=== PATIENT | female | born 1945 | race American Indian/Alaskan Native ===

== ENCOUNTER 2021-04-02 13:07 | Outpatient (RCR) | payer OTHER, SELFPAY ==
[2021-04-02 14:12] VITALS: BMI 53.0
== END 2021-05-26 13:44 | disposition home or self-care (01) ==
LOC: ANHWOC 13:07
PROVIDERS: PCP Family Medicine; Visit Provider Physician Assistant
DX: S01.80XD Unspecified open wound of other part of head, subsequent encounter (principal)
CPT/HCPCS: 99212; G0463

== ENCOUNTER 2021-06-29 15:30 | Outpatient (CLI) | payer OTHER, SELFPAY ==
[2021-06-29 16:46] LABS: Anion Gap 6 mmol/L (8-16); Blood Urea Nitrogen 27 mg/dL (7-17); Calcium 9.8 mg/dL (8.4-10.2); Carbon Dioxide 34 mmol/L (22-30); Chloride 97 mmol/L (98-107); Estimated Glomerular Filt Rate 29; Glucose 136 mg/dL (65-110); Potassium 3.9 mmol/L (3.4-5.0); Sodium 137 mmol/L (137-145)
[2021-06-29 16:57] LABS: LDL Cholesterol Direct 45 mg/dL
== END 2021-06-29 15:31 | disposition home or self-care (01) ==
LOC: ANHWCLAB 15:33
PROVIDERS: PCP Family Medicine; Referring Provider Internal Medicine Endocrinology, Diabetes & Metabolism; Visit Provider Internal Medicine Endocrinology, Diabetes & Metabolism
DX: E11.65 Type 2 diabetes mellitus with hyperglycemia (principal); E78.00 Pure hypercholesterolemia, unspecified; Z79.4 Long term (current) use of insulin
CPT/HCPCS: 36415; 80048; 83721

== ENCOUNTER 2021-07-08 15:43 | Outpatient (NON) | payer OTHER, SELFPAY ==
[2021-07-08 16:02] LABS: Add Urine Microscopic? YES; Appearance Urine Clear (Clear); Bacteria Urine Trace /hpf; Bilirubin Urine Negative (Negative); Blood Urine 2+ (Negative); Color Urine Yellow (Yellow); Glucose Urine UA Negative (Negative); Ketones Urine Negative (Negative); Leukocyte Esterase Ur Negative LEU/UL (NEGATIVE); Mucus Urine Rare /lpf; Nitrate Urine Negative (Negative); Protein Urine 1+ mg/dL (Negative); RBC Urine 0-2 /hpf (0-2); Specific Grav Ur 1.019 (1.001-1.035); Squamous Epithelial Cell Urine Moderate /hpf (Few); Urobilinogen Urine Negative mg/dL (<2.0); WBC Urine 0-3 /hpf (0-3)
[2021-07-08 20:23] LABS: Creatinine Urine 118.4 mg/dL
[2021-07-08 20:28] LABS: MALB Creatinine Ratio 56.9 mg/g (0-30); Microalbumin Urine Random 67.4 mg/L (0-16.7)
== END 2021-07-08 15:44 | disposition home or self-care (01) ==
PROVIDERS: PCP Family Medicine; Visit Provider Physician Assistant
DX: E11.65 Type 2 diabetes mellitus with hyperglycemia (principal); Z79.4 Long term (current) use of insulin; E78.00 Pure hypercholesterolemia, unspecified; I12.9 Hypertensive chronic kidney disease with stage 1 through stage 4 chronic kidney disease, or unspecified chronic kidney disease; N18.30 Chronic kidney disease, stage 3 unspecified
CPT/HCPCS: 81001; 82043

== ENCOUNTER 2021-12-02 10:30 | Outpatient (RCR) | payer OTHER, SELFPAY ==
--- NOTE | 2021-09-21 11:28 | PCWOUND ---
WOCNNOTE Patient called to cancel appointment for today, she is not feeling well. rescheduled for next Monday.
--- NOTE | 2021-09-29 09:31 | PCWOUND ---
WOCN NOTE Patient was seen at the wound center on 09/28/21 for wound to the left lower leg. During appointment, patient and daughter voiced concern about the swelling and redness to the right lower leg. Explained to patient that the redness is due to her venous insufficiency and that she has uncontrolled lymphedema to the right lower leg. Patient's daughter asked if she could buy compression stocking for the right lower leg. Explained to the patient and daughter that due to the large amount of lymphedema in the leg, that she would not be able to buy the proper size for the leg. Recommended that the patient or her daughter contact her PCP and ask about [facility]. Educated patient that at this clinic, they would be able to apply the proper compression wraps to help reduce edema and then help patient find the proper compression wraps for maintenance wear. Patient verbalized understanding and that she would be calling her PCP.
--- NOTE | 2021-10-19 13:50 | PCWOUND ---
WOCN NOTE patient did not show up for her rescheduled appointment from 10/12/21 today. No call was made to cancel or reschedule.
== END 2021-12-06 23:59 | disposition home or self-care (01) ==
LOC: ANHWOC 10:30
PROVIDERS: PCP Family Medicine; Visit Provider Nurse Practitioner Family
DX: S81.802D Unspecified open wound, left lower leg, subsequent encounter (principal)
CPT/HCPCS: 99212; 99213; G0463

== ENCOUNTER 2021-12-14 16:39 | Outpatient (CLI) | payer OTHER, SELFPAY ==
[2021-12-14 17:21] LABS: Basophils Absolute Auto 0.1 K/mm3 (0.0-0.1); Basophils Percent Auto 0.7 % (0.2-1.2); Eosinophils Absolute Auto 0.2 K/mm3 (0-0.3); Hematocrit 39.6 % (37.0-47.0); Hemoglobin 11.9 g/dL (12.0-15.0); Immature Granulocyte Absolute 0.02 K/mm3 (0.00-0.031); Immature Granulocyte Percent A 0.3 % (0-0.5); Lymphocytes Absolute Auto 2.02 K/mm3 (0.9-3.2); Mean Corpuscular HGB Conc 30.1 g/dl (32-36); Mean Corpuscular Hemoglobin 26.7 pg (26-34); Mean Platelet Volume 10.6 fl (7.4-10.4); Monocytes Absolute Auto 0.9 K/mm3 (0.1-0.6); Neutrophils Absolute Auto 4.3 K/mm3 (1.3-6.7); Platelet Count Result 261 k/mm3 (150-375); Red Blood Count 4.45 M/mm3 (4.2-5.4); Red Cell Distribution Width 19.5 % (11.5-14.5); White Blood Count 7.5 K/mm3 (4.5-10.0)
[2021-12-14 17:29] LABS: Alanine Aminotransferase 12 U/L (6-35); Albumin Level 3.8 g/dL (3.5-5.1); Alkaline Phosphatase 133 U/L (38-126); Amylase 44 U/L (30-110); Anion Gap 8 mmol/L (8-16); Aspartate Amino Transferase 17 U/L (14-36); Bilirubin,Total 0.7 mg/dL (0.2-1.3); Blood Urea Nitrogen 18 mg/dL (7-17); Calcium 9.5 mg/dL (8.4-10.2); Carbon Dioxide 29 mmol/L (22-30); Chloride 104 mmol/L (98-107); Estimated Glomerular Filt Rate 36; Glucose 217 mg/dL (65-110); Lipase 110 U/L (23-300); Potassium 4.1 mmol/L (3.4-5.0); Sodium 141 mmol/L (137-145)
[2021-12-14 17:37] LABS: NT Pro B Type Natriuretic Pept 5160 pg/mL (5-100)
== END 2021-12-14 16:40 | disposition home or self-care (01) ==
PROVIDERS: PCP Family Medicine; Visit Provider Nurse Practitioner Family
DX: R11.2 Nausea with vomiting, unspecified (principal); R19.7 Diarrhea, unspecified; R10.9 Unspecified abdominal pain; I50.9 Heart failure, unspecified; R06.02 Shortness of breath; E11.65 Type 2 diabetes mellitus with hyperglycemia; E78.00 Pure hypercholesterolemia, unspecified; I12.9 Hypertensive chronic kidney disease with stage 1 through stage 4 chronic kidney disease, or unspecified chronic kidney disease; N18.30 Chronic kidney disease, stage 3 unspecified; Z79.4 Long term (current) use of insulin
CPT/HCPCS: 36415; 80053; 82150; 83690; 83880; 85025

== ENCOUNTER 2022-01-03 10:30 | Outpatient (RCR) | payer OTHER, SELFPAY ==
--- NOTE | 2021-11-26 10:09 | PTOPEVAL ---
PHYSICAL THERAPY EVALUATION AND PLAN OF CARE 11-26-21 Thank you for referring Barbara Rose to [facility] for the diagnosis of B LE lymphedema. She is scheduled to be seen for therapy? 3x/week for 6 weeks. Please review, sign, date and return this plan of care CARLY. I agree with and certify that the following plan of care is medically necessary. 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 Cardiovascular History Hx Atrial Fibrillation Yes Hx Hypercholesterolemia Yes: meds Hx Hypertension Yes: meds Respiratory History Hx Asthma Yes Gastrointestinal History Hx Gastrointestinal Disorders No Significant History Genitourinary History Hx Nephrectomy Yes: left kidney removed 2012 due to cancer Hx Renal Disease Yes: right kidney stage 3 Musculoskeletal History Hx Arthritis Yes: knee Hx Other Musculoskeletal Disorders Yes: B club feet, surgery as child; R rotator cuff surgery Hematological History Hx Hematological Disorders No Significant History Endocrine History Hx Diabetes Yes: on insulin HEENT History Hx HEENT Disorders No Significant History Integumentary History Hx Other Skin Disorders Yes: skin lesion left side of face Reproductive History Hx Reproductive Disorders No Significant History Psychosocial History Hx Psychiatric Disorders No Significant History Pain History History of Any Previous or Ongoing No Significant History Instance of Pain Anesthesia History Hx Anesthesia Reactions No Significant History Other History Hx Cancer Yes: kidney cancer with surgical removal of kidney L, no chemo or radiation Hx MRSA Yes Evaluation Information Diagnosis B LE lymphedema Onset October 05 2021 Subjective Information hospitalized due to cardiac Query Text:As Reported By Patient/ issues Family Prior Level of Function Home Setting Home Type House,Halfway Living Situation With Spouse Support Available Local Family Support Mobility Assistive Devices (Used Last 3 Walker, Standard Months) Comments Additional Prior Level of Function prior to September hospitalization Comments , lived at home with her ; her daughter lives
--- NOTE | 2021-11-26 10:13 | PCPTNOTE ---
pt signed consent for photo to be taken of her legs for her evaluation. photo taken and in her EMR.
--- NOTE | 2021-11-26 10:13 | PCPTNOTE ---
there is a delay in the start of treatment, with her next appt on December 08, due to not having any treatment times available. Pt will be called if any earlier openings are available.
--- NOTE | 2021-12-13 13:44 | PCPTNOTE ---
pt called and canceled due to not feeling well.
--- NOTE | 2021-12-24 10:43 | PCPTNOTE ---
pt called and canceled due to daughter ill and not have transportation;
--- NOTE | 2021-12-27 17:14 | PCPTNOTE ---
Pt called clinic and left several messages. Returned Pt's call, apologized for not getting back to her sooner. Pt stated this compression sock keeps rolling down and is uncomfortable. I had informed Pt earlier this may happen due to it being the wrong compression garment than the one prescribed. We will be re-lending the Velcro garment, Velcro foot piece, and sock until correct garment mediven plus arrives.
--- NOTE | 2022-01-05 09:19 | PCPTNOTE ---
Patient called & cancelled scheduled appointment this date due to being unable to make it in.
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
--- NOTE | 2022-01-14 14:22 | PCPTNOTE ---
called pt to check on her since she had to cancel the reevaluation appt; she stated she has been wearing the stockings but feels they are too long, they have to tuck in the toe part; asked her to double check and make sure that she received the garment as ordered--? is it the petite size. Also, ordered extra wide calf, if her leg is smaller, the calf may need to be regular size calf. Discussed with her coming in to recheck the measurement of her leg and the garment. She stated her daughter will have to call for the appointment,since she provides her transportation.
--- NOTE | 2022-02-03 13:56 | PCPTNOTE ---
PHYSICAL THERAPY DISCHARGE REPORT 02-03-22 Attending Provider: Edgard Jaquez MD Patient:Barbara Rose Date of :1945 Mrs. Rose has not returned for any further treatments since 01/03/2022, therefore she will be discharged at this time. The goals were not addressed. Thank you for referring Barbara to [facility]. Please review, sign, date and return this discharge summary CARLY. I have been updated about the patient's current status and I agree with discharge from the above service at this time. Referring Physician Date
== END 2022-02-03 15:10 | disposition home or self-care (01) ==
LOC: ANHPT 10:30
PROVIDERS: PCP Family Medicine; Visit Provider Family Medicine
DX: I89.0 Lymphedema, not elsewhere classified (principal)
CPT/HCPCS: 29581; 97140; 97161

== ENCOUNTER 2022-08-12 14:22 | Outpatient (CLI) | payer OTHER, SELFPAY ==
--- NOTE | ~2022-08-12 | XR_ITS ---
XR shoulder RT min 2V DATE: 08/12/2022 15:00 INDICATION: Right shoulder pain. Injury years ago. TECHNIQUE: 4 views COMPARISON: None FINDINGS: There is severe narrowing/virtual obliteration of right glenohumeral joint space with promi nent spurring. No fracture, dislocation, periosteal reaction or bone destruction of the right shoulder or significan t abnormal soft tissue calcification is noted. IMPRESSION: Severe glenohumeral osteoarthritis Reviewed, dictated and finalized at location B. ICITY MANAGER
[2022-08-12 15:14] LABS: Basophils Absolute Auto 0.1 K/mm3 (0.0-0.1); Basophils Percent Auto 0.6 % (0.2-1.2); Eosinophils Absolute Auto 0.3 K/mm3 (0-0.3); Eosinophils Percent Auto 3.4 % (0-4.4); Hematocrit 40.2 % (37.0-47.0); Hemoglobin 12.7 g/dL (12.0-15.0); Immature Granulocyte Absolute 0.05 K/mm3 (0.00-0.031); Immature Granulocyte Percent A 0.5 % (0-0.5); Lymphocytes Absolute Auto 2.12 K/mm3 (0.9-3.2); Lymphocytes Percent Auto 21.8 % (18.3-44.2); Mean Corpuscular HGB Conc 31.6 g/dl (32-36); Mean Corpuscular Hemoglobin 32.8 pg (26-34); Mean Corpuscular Volume 103.9 fl (80-100); Mean Platelet Volume 9.8 fl (7.4-10.4); Monocytes Percent Auto 10.6 % (2.6-8.5); Neutrophils Absolute Auto 6.1 K/mm3 (1.3-6.7); Neutrophils Percent Auto 63.1 % (45.5-73.1); Platelet Count Result 208 k/mm3 (150-375); Red Blood Count 3.87 M/mm3 (4.2-5.4); Red Cell Distribution Width 15.4 % (11.5-14.5); White Blood Count 9.7 K/mm3 (4.5-10.0)
[2022-08-12 15:44] LABS: Alanine Aminotransferase 25 U/L (6-35); Albumin Level 3.6 g/dL (3.5-5.1); Alkaline Phosphatase 121 U/L (38-126); Anion Gap 4 mmol/L (8-16); Aspartate Amino Transferase 23 U/L (14-36); Bilirubin,Total 0.6 mg/dL (0.2-1.3); Blood Urea Nitrogen 28 mg/dL (7-17); Calcium 10.1 mg/dL (8.4-10.2); Carbon Dioxide 33 mmol/L (22-30); Chloride 103 mmol/L (98-107); Estimated Glomerular Filt Rate 34; Glucose 135 mg/dL (65-110); Iron 74 ug/dL (37-170); Percent Iron Saturation 30 % (20-50); Potassium 3.8 mmol/L (3.4-5.0); Sodium 140 mmol/L (137-145)
== END 2022-08-12 14:23 | disposition home or self-care (01) ==
PROVIDERS: PCP Family Medicine; Visit Provider Physician Assistant
DX: E11.65 Type 2 diabetes mellitus with hyperglycemia (principal); E78.00 Pure hypercholesterolemia, unspecified; Z79.4 Long term (current) use of insulin; M19.011 Primary osteoarthritis, right shoulder; I12.9 Hypertensive chronic kidney disease with stage 1 through stage 4 chronic kidney disease, or unspecified chronic kidney disease; N18.30 Chronic kidney disease, stage 3 unspecified
CPT/HCPCS: 36415; 73030; 80053; 82607; 82728; 82746; 83036; 83540; 83550; 84443; 85025

== ENCOUNTER 2022-12-29 16:53 | Outpatient (CLI) | payer OTHER, SELFPAY ==
[2022-12-29 17:10] LABS: Basophils Absolute Auto 0.1 K/mm3 (0.0-0.1); Basophils Percent Auto 0.9 % (0.2-1.2); Eosinophils Absolute Auto 0.4 K/mm3 (0-0.3); Eosinophils Percent Auto 4.1 % (0-4.4); Hematocrit 36.8 % (37.0-47.0); Hemoglobin 11.5 g/dL (12.0-15.0); Immature Granulocyte Absolute 0.03 K/mm3 (0.00-0.031); Immature Granulocyte Percent A 0.3 % (0-0.5); Lymphocytes Percent Auto 29.4 % (18.3-44.2); Mean Corpuscular HGB Conc 31.3 g/dl (32-36); Mean Corpuscular Hemoglobin 32.1 pg (26-34); Mean Corpuscular Volume 102.8 fl (80-100); Mean Platelet Volume 9.6 fl (7.4-10.4); Monocytes Absolute Auto 1.1 K/mm3 (0.1-0.6); Monocytes Percent Auto 12.9 % (2.6-8.5); Neutrophils Absolute Auto 4.6 K/mm3 (1.3-6.7); Neutrophils Percent Auto 52.4 % (45.5-73.1); Platelet Count Result 204 k/mm3 (150-375); Red Blood Count 3.58 M/mm3 (4.2-5.4); Red Cell Distribution Width 15.2 % (11.5-14.5); White Blood Count 8.8 K/mm3 (4.5-10.0)
[2022-12-29 17:25] LABS: Anion Gap 3 mmol/L (8-16); Blood Urea Nitrogen 28 mg/dL (7-17); Calcium 9.8 mg/dL (8.4-10.2); Carbon Dioxide 35 mmol/L (22-30); Chloride 102 mmol/L (98-107); Estimated Glomerular Filt Rate 27; Glucose 216 mg/dL (65-110); Potassium 4.5 mmol/L (3.4-5.0); Sodium 140 mmol/L (137-145)
== END 2022-12-29 16:54 | disposition home or self-care (01) ==
PROVIDERS: PCP Family Medicine; Visit Provider Physician Assistant
DX: D72.829 Elevated white blood cell count, unspecified (principal); E87.6 Hypokalemia
CPT/HCPCS: 36415; 80048; 85025

== ENCOUNTER 2023-02-14 15:17 | Outpatient (CLI) | payer OTHER, SELFPAY ==
--- NOTE | ~2023-02-14 | XR_ITS ---
XR hip LT min 2V 02/14/2023 15:44 Indication: Left hip pain for 2 days Procedure: 2 views left hip Comparison: No prior studies for comparison. Findings: There is moderate osteoarthritis of the left hip. No fracture or traumatic malalignment. No soft tissue abnormality. There is atherosclerosis. Impression: 1: Moderate osteoarthritis of the left hip. Reviewed, dictated and finalized at location A. Impression: 1: Moderate osteoarthritis of the left hip.
== END 2023-02-14 15:18 | disposition home or self-care (01) ==
PROVIDERS: PCP Family Medicine; Visit Provider Physician Assistant
DX: M16.12 Unilateral primary osteoarthritis, left hip (principal); R29.898 Other symptoms and signs involving the musculoskeletal system; R53.1 Weakness
CPT/HCPCS: 73502

== ENCOUNTER 2023-04-18 12:42 | Outpatient (NON) | payer OTHER, SELFPAY ==
[2023-04-18 13:24] LABS: Appearance Urine Turbid (Clear); Bacteria Urine 4+ /hpf; Bilirubin Urine Negative (Negative); Blood Urine 1+ (Negative); Color Urine Yellow (Yellow); Glucose Urine UA Negative (Negative); Ketones Urine Negative (Negative); Leukocyte Esterase Ur 3+ LEU/UL (NEGATIVE); Need Manual Microscopic Reviewed; Nitrate Urine Negative (Negative); Non Pathogenic Casts >20; Protein Urine 2+ mg/dL (Negative); RBC Urine 0-2 /hpf (0-2); Specific Grav Ur 1.017 (1.001-1.035); Squamous Epithelial Cell Urine Moderate /hpf (Few); Urobilinogen Urine 0.2 mg/dL (<2.0); WBC Urine >100 /hpf (0-3)
[2023-04-18 13:25] LABS: Add Urine Microscopic? YES
== END 2023-04-18 12:43 | disposition home or self-care (01) ==
LOC: ANHLAB 12:44
PROVIDERS: PCP Family Medicine; Visit Provider Physician Assistant Medical
DX: N39.0 Urinary tract infection, site not specified (principal); R30.0 Dysuria
CPT/HCPCS: 81001; 87086; 87088

== ENCOUNTER 2023-06-26 13:13 | Outpatient (CLI) | payer OTHER, SELFPAY ==
--- NOTE | ~2023-06-26 | US_ITS ---
EXAMINATION: US soft tissue LE DATE: 06/26/2023 14:11 INDICATION: Left calf lump. TECHNIQUE: Multiple grayscale and Doppler ultrasound images of the left lower limb were obtained. COMPARISON: None FINDINGS: In the left calf, there is a mass measuring at least 5 x 3 cm that is heterogeneous and hyp oechoic. No demonstrable internal vascular flow. IMPRESSION: 1. 5 cm mass in left calf which may be a hematoma or neoplasm. MRI without and with contrast is recom mended. Reviewed, dictated and finalized at location E. ECTIONS ANALYST IMPRESSION: 1. 5 cm mass in left calf which may be a hematoma or neoplasm. MRI without and with contrast is recommended.
== END 2023-06-26 13:14 | disposition home or self-care (01) ==
PROVIDERS: PCP Family Medicine; Visit Provider Physician Assistant
DX: R22.42 Localized swelling, mass and lump, left lower limb (principal)
CPT/HCPCS: 76882

== ENCOUNTER 2023-10-30 15:24 | Outpatient (CLI) | payer OTHER, SELFPAY ==
[2023-10-30 15:45] LABS: Basophils Absolute Auto 0.1 K/mm3 (0.0-0.1); Basophils Percent Auto 0.7 % (0.2-1.2); Eosinophils Absolute Auto 0.4 K/mm3 (0-0.3); Eosinophils Percent Auto 4.5 % (0-4.4); Hematocrit 36.9 % (37.0-47.0); Hemoglobin 11.2 g/dL (12.0-15.0); Immature Granulocyte Absolute 0.03 K/mm3 (0.00-0.031); Immature Granulocyte Percent A 0.3 % (0-0.5); Lymphocytes Absolute Auto 2.38 K/mm3 (0.9-3.2); Lymphocytes Percent Auto 25.2 % (18.3-44.2); Mean Corpuscular HGB Conc 30.4 g/dl (32-36); Mean Corpuscular Hemoglobin 31.1 pg (26-34); Mean Corpuscular Volume 102.5 fl (80-100); Mean Platelet Volume 10.6 fl (7.4-10.4); Monocytes Percent Auto 10.4 % (2.6-8.5); Neutrophils Absolute Auto 5.6 K/mm3 (1.3-6.7); Neutrophils Percent Auto 58.9 % (45.5-73.1); Platelet Count Result 149 k/mm3 (150-375); White Blood Count 9.4 K/mm3 (4.5-10.0)
[2023-10-30 16:14] LABS: Alanine Aminotransferase 25 U/L (6-35); Albumin Level 3.7 g/dL (3.5-5.1); Alkaline Phosphatase 125 U/L (38-126); Anion Gap 3 mmol/L (4-12); Aspartate Amino Transferase 20 U/L (14-36); Bilirubin,Total 0.5 mg/dL (0.2-1.3); Blood Urea Nitrogen 23 mg/dL (7-17); Calcium 9.6 mg/dL (8.4-10.2); Carbon Dioxide 36 mmol/L (22-30); Chloride 103 mmol/L (98-107); Estimated Glomerular Filt Rate 48; Glucose 194 mg/dL (65-110); Potassium 3.9 mmol/L (3.4-5.0); Sodium 142 mmol/L (137-145)
[2023-10-30 23:36] LABS: Hemoglobin A1C 4.6 % (<5.7)
== END 2023-10-30 15:25 | disposition home or self-care (01) ==
LOC: ANHLAB 15:27
PROVIDERS: PCP Family Medicine; Visit Provider Physician Assistant Medical
DX: E11.65 Type 2 diabetes mellitus with hyperglycemia (principal); Z79.4 Long term (current) use of insulin; I10 Essential (primary) hypertension; E87.5 Hyperkalemia; D64.9 Anemia, unspecified; E78.00 Pure hypercholesterolemia, unspecified
CPT/HCPCS: 36415; 80053; 83036; 85025

== ENCOUNTER 2024-01-03 11:15 | Emergency (ER) | payer OTHER, SELFPAY ==
[2024-01-03] VITALS (33 sets, daily range): BP systolic 134–159; BP diastolic 61–72; PULSE 62–111; RESP 14–25; O2SAT 89–100
--- NOTE | 2024-01-03 11:38 | ED.GENADULT ---
HPI - General Adult General Chief complaint: Wound/Laceration Stated complaint: post op complication, hematuria Time Seen by Provider: 01/03/24 11:37 Source: patient Mode of arrival: ambulatory Limitations: no limitations History of Present Illness HPI narrative: This is a 78-year-old female With PMH of CKD, AFib, CVA, type 2 diabetes who presents to the ED via EMS [facility] for chief complaint of bleeding surgical wound to the left lower leg. Patient had evacuation of the hematoma 3 weeks ago at [facility]. She states that the wound has been oozing blood intermittently for >1week. Denies leg pain or swelling. She is on Eliquis regularly. Today patient states that she has had gross hematuria through her Sutherland catheter. This is a new problem. Endorses some suprapubic discomfort but this has been constant since having the Sutherland placed. Denies fevers, chills, nausea, vomiting, weakness. Denies injuries. Unsure of her surgeon's name. states that the [facility] has been doing daily dressing changes. Surgery was with Dr. Spears 12/10/23 Related Data Home Medications Medication Instructions Recorded Confirmed acetaminophen 325 mg tablet 325 mg PO Q6H PRN Pain 10/07/19 10/30/23 (Tylenol) Allergies Allergy/AdvReac Type Severity Reaction Status Date / Time azithromycin Allergy Unknown RESP Verified 10/30/23 13:54 DISTRESS,Unknown DIPHENHYDRAMINE HCL Allergy Severe ANXIOUSNESS Uncoded 10/30/23 13:54 PROCHLORPERAZINE EDISYLATE Allergy Severe ANXIOUSNESS Uncoded 10/30/23 13:54 PROCHLORPERAZINE MALEATE Allergy Severe ANXIOUSNESS Uncoded 10/30/23 13:54 azithromycin Allergy Unknown Unknown Uncoded 10/30/23 13:54 Benadryl Allergy Unknown Unknown Uncoded 10/30/23 13:54 Compazine Allergy Unknown Unknown Uncoded 10/30/23 13:54 Review of Systems Review of Systems: All systems as dictated in [facility] Past Medical History Medical History Arthritis Asthma Chronic kidney disease, stage III (moderate) Essential hypertension Hyperlipidemia LDL goal <100 Hypertension MRSA infection Obesity Paroxysmal A-fib Pigmented skin lesion suspicious for malignant neoplasm Post-menopausal Pure hypercholesterolemia, unspecified Stroke Type 2 diabetes mellitus with hyperglycemia, with long-term current use of insulin Surgical History Surgical History H/O splenectomy Hx of tubal ligation Social History Social History Smoking status: Never smoker Second hand tobacco smoke exposure: No Alcohol intake: never Substance use: never Substance use type: does not use Living arrangements: with family Occupation/Education: retired Gender identity (if verbalized by the patient): Female Exam Narrative: GENERAL: Well-appearing, well-nourished, and in no acute distress. HEAD: Normocephalic, atraumatic. EYES: PERRLA and EOMI. ENT: Nares clear, no rhinorrhea or epistaxis. Mucous membranes moist. Oropharynx without tonsillar hypertrophy exudate or other lesions. NECK: Supple. No adenopathy or masses. CHEST: No respiratory distress. Clear to auscultation. No wheezes rales or rhonchi HEART: Regular rate and rhythm. No murmur heard. Normal peripheral pulses. ABDOMEN: Soft, nontender, nondistended, normal active bowel sounds. MSK: Normal range of motion. No edema. SKIN: There is a diagonally oriented healing surgical wound to the left lower leg anteriorly. There is oozing blood from the proximal/medial most aspect of the incision. Sutures are in place. No soft tissue swelling, erythema or purulent drainage. NEURO: Alert and oriented x4. No focal deficits. PSYCH: Normal mood and affect. : Sutherland bag is filled with gross hematuria Course Reevaluation(s) Reevaluation #1: th
[2024-01-03 12:23] LABS: Hematocrit 32.9 % (37.0-47.0); Hemoglobin 10.2 g/dL (12.0-15.0); Immature Platelet Fraction Pct 7.5 % (0.9-11.2); Mean Corpuscular Hemoglobin 31.2 pg (26-34); Mean Corpuscular Volume 100.6 fl (80-100); Mean Platelet Volume 11.7 fl (7.4-10.4); Platelet Count Result 112 k/mm3 (150-375); Red Blood Count 3.27 M/mm3 (4.2-5.4); Red Cell Distribution Width 16.7 % (11.5-14.5); White Blood Count 7.7 K/mm3 (4.5-10.0)
[2024-01-03 12:30] LABS: Bacteria Urine 4+ /hpf; Need Manual Microscopic Reviewed; RBC Urine >100 /hpf (0-2); Squamous Epithelial Cell Urine None Seen /hpf (Few); WBC Urine >100 /hpf (0-3)
[2024-01-03 12:31] LABS: Appearance Urine Turbid (Clear); Blood Urine 3+ (Negative); Color Urine Red (Yellow); Glucose Urine UA Negative (Negative); Ketones Urine Negative (Negative); Leukocyte Esterase Ur 3+ LEU/UL (Negative); Nitrate Urine Negative (Negative); Protein Urine 2+ mg/dL (Negative); Specific Grav Ur 1.012 (1.001-1.035); pH Urine 7.5 (5.0-9.0)
[2024-01-03 12:32] LABS: Bilirubin Urine Unable to determine (Negative); Urobilinogen Urine Unable to determine mg/dL (<2.0)
[2024-01-03 12:33] LABS: INR 1.8; Prothrombin Time 21.2 Seconds (11.1-14.7)
[2024-01-03 12:34] LABS: Partial Thromboplastin Time 35.9 Seconds (22.3-36.8)
[2024-01-03 12:34] LABS: Add Urine Microscopic? YES
[2024-01-03 12:35] LABS: Alanine Aminotransferase 16 U/L (6-35); Albumin Level 3.4 g/dL (3.5-5.1); Alkaline Phosphatase 119 U/L (38-126); Anion Gap 0 mmol/L (4-12); Aspartate Amino Transferase 41 U/L (14-36); Bilirubin,Total 1.2 mg/dL (0.2-1.3); Blood Urea Nitrogen 23 mg/dL (7-17); Calcium 8.5 mg/dL (8.4-10.2); Carbon Dioxide 37 mmol/L (22-30); Chloride 100 mmol/L (98-107); Estimated CRCL calculation 59 ml/min; Estimated Glomerular Filt Rate > 60; Glucose 111 mg/dL (65-110); Potassium 4.5 mmol/L (3.4-5.0); Sodium 137 mmol/L (137-145)
[2024-01-03 12:46] LABS: Band Neutrophils Percent 2 % (0-6); Eosinophils Absolute Manual 0.15 K/mm3 (0.02-0.50); Eosinophils Percent Manual 2 % (0-4); Lymphocytes Absolute Manual 2.46 K/mm3 (1.1-4.5); Monocytes Absolute Manual 0.92 K/mm3 (0.1-0.90); Monocytes Percent Manual 12 % (3-9); Neutrophils Absolute Manual 4.15 K/mm3 (1.7-7.2); Neutrophils Percent Manual 52 % (46-73); Platelet Estimate Decreased (Adequate); Schistocytes None Seen; Total Cells Counted 100
--- NOTE | 2024-01-03 13:55 | PC.NURSE ---
Patient states that her gonzales was inserted right after her surgery A month ago? gonzales catheter removed, and new 18fr gonzales catheter placed with appropriate urine flow, 10ML balloon inflated, urine in catheter more pink tinged than bright red. patient states some discomfort from catheter, will bladder scan to assess emptying appropriately
[2024-01-03] MEDS: SODIUM CHLORIDE 0.9% IV 500 ML 999 ML IV CONT (14:40)
[2024-01-03] MEDS: ACETAMINOPHEN 500 MG TABLET 1000 MG PO (17:19)
== END 2024-01-03 18:59 ==
PROVIDERS: Emergency Provider Physician Assistant; PCP Family Medicine
DX: L76.22 Postprocedural hemorrhage of skin and subcutaneous tissue following other procedure (principal); N39.0 Urinary tract infection, site not specified; R31.9 Hematuria, unspecified; I12.9 Hypertensive chronic kidney disease with stage 1 through stage 4 chronic kidney disease, or unspecified chronic kidney disease; E11.22 Type 2 diabetes mellitus with diabetic chronic kidney disease; N18.30 Chronic kidney disease, stage 3 unspecified; I48.0 Paroxysmal atrial fibrillation; E78.00 Pure hypercholesterolemia, unspecified; Z86.14 Personal history of Methicillin resistant Staphylococcus aureus infection; Z86.73 Personal history of transient ischemic attack (TIA), and cerebral infarction without residual deficits; Z90.81 Acquired absence of spleen; Z79.01 Long term (current) use of anticoagulants; Z79.4 Long term (current) use of insulin; Z79.899 Other long term (current) drug therapy
CPT/HCPCS: 36415; 51702; 80053; 81001; 85025; 85055; 85610; 85730; 87077; 87086; 87088; 87186; 96361; 96365; 99284; A9270; J0696; J7040